=== PATIENT | female | born 1950 | race Hispanic/Latino ===

== ENCOUNTER → 2020-07-14 | Outpatient (CLI) | payer MEDICARE ==
[~2020-07-14] MED LIST: ALBUMIN 25% 12.5GM 50ML 150 ML IV ONE; ALBUMIN 25% 12.5GM 50ML 50 ML IV ONE; ASPIRIN81 MG; GLIPIZIDE ER5 MG; LEVOTHYROXINE50 MCG PO; LOSARTAN POTASS25 MG; LOVASTATIN20 MG; METFORMIN HCL500 M1 PO; METFORMIN HCL500 MG PO; PEPCID20 MG PO
[2020-07-14 12:31] LABS: INR 1.1; PROTHROMBIN TIME 14.8 seconds (11.9-14.5)
[2020-07-14 12:49] LABS: PARTIAL THROMBOPLASTIN TIME 31.7 seconds (23.8-35.5)
--- NOTE | 2020-07-14 14:33 | Diagnostic Imaging Report ---
PROCEDURE: Ultrasound-guided paracentesis Procedural Personnel Attending physician(s): Francisco Fulton MD Pre-procedure diagnosis: Ascites Post-procedure diagnosis: Unchanged Indication: Ascites with pain or pressure symptoms Additional clinical history: None Complications: No immediate complications. IMPRESSION: Ultrasound-guided paracentesis with drainage of 8800 mL of serous fluid. Plan: Resume care by clinical team. PROCEDURE SUMMARY: - Limited abdominal ultrasound - Ultrasound-guided paracentesis - Additional procedure(s): None PROCEDURE DETAILS: Pre-procedure Consent: Informed consent for the procedure including risks, benefits and alternatives was obtained and time-out was performed prior to the procedure. Preparation: The site was prepared and draped using maximal sterile barrier technique including cutaneous antisepsis. Anesthesia/sedation Level of anesthesia/sedation: None Initial abdominal ultrasound Initial abdominal ultrasound was performed. Findings: Large ascites. A safe window for paracentesis was identified. Paracentesis Local anesthesia was administered. The peritoneal cavity was accessed and fluid return confirmed position. Ascites was drained. The catheter was then removed, and a sterile bandage was applied. Paracentesis access technique: Real-time ultrasound guidance. Catheter placed: 5Fr Yueh Post-drainage ultrasound: No visible ascites Additional Details Additional description of procedure: None Equipment details: None Specimens removed: Abdominal fluid Estimated blood loss (mL): Minimal (<10cc) Standardized report: [id number] Attestation Signer name: Francisco Fulton MD I attest that I was present for the entire procedure. I reviewed the stored images and agree with the report as written. Signed by: Francisco Fulton MD on 07/14/2020 2:29 PM
[2020-07-14 16:41] LABS: BODY FLUID APPEARANCE CLOUDY; BODY FLUID COLOR YELLOW; BODY FLUID TYPE PLEURAL
[2020-07-14 16:42] LABS: RBC,BODY FLUID 112 cells/uL; WBC,BODY FLUID 39 cells/uL
[2020-07-14 16:55] LABS: LYMPHOCYTES,BODY FLUID 57 %; MONO/MACROPHG,BODY FLUID 34 %; NEUTROPHILS,BODY FLUID 9 %
== END ==
LOC: US 11:41
PROVIDERS: ATTEND Internal Medicine Gastroenterology
DX: K74.60 Unspecified cirrhosis of liver (principal)
CPT/HCPCS: 36415; 49083; 82040; 84157; 85014; 85049; 85610; 85730; 87070; 87205; 89051; C1729

== ENCOUNTER 2020-07-19 11:41 | Observation (INO) | payer MEDICARE, OTHER ==
[~2020-07-19] VITALS: Ht 152.4 cm; Wt 58.1 kg
[~2020-07-19 11:41] MED LIST changes: -ALBUMIN 25% 12.5GM 50ML 150 ML IV ONE; -ALBUMIN 25% 12.5GM 50ML 50 ML IV ONE; -ASPIRIN81 MG; +ASPIRIN81 MG PO; -LOSARTAN POTASS25 MG; +LOSARTAN POTASS25 MG PO; -LOVASTATIN20 MG; +LOVASTATIN20 MG PO
[2020-07-19 12:45] LABS: BASOPHILS % 0.4 % (0.0-1.0); EOSINOPHILS % 0.6 % (0.0-6.0); HEMATOCRIT 32.2 % (34.2-44.1); HEMOGLOBIN 10.3 g/dL (12.0-16.0); LYMPHOCYTES # (AUTO) 0.8 (1.0-3.2); LYMPHOCYTES % 16.1 % (18.0-39.1); MEAN CORPUSCULAR HEMOGLOBIN 26.3 pg (28-32); MEAN CORPUSCULAR VOLUME 82.4 fL (81-99); MONOCYTES # (AUTO) 0.3 (0.2-0.8); MONOCYTES % 6.9 % (4.4-11.3); NEUTROPHILS # (AUTO) 3.7 (2.1-6.9); NEUTROPHILS % 75.6 % (38.7-80.0); PLATELET COUNT 215 x10e3/uL (140-360); RED BLOOD COUNT 3.91 x10e6/uL (3.6-5.1); RED CELL DISTRIBUTION WIDTH 16.7 % (11.7-14.4)
[2020-07-19 12:53] LABS: CLARITY,URINE HAZY (CLEAR); COLOR,URINE YELLOW (YELLOW); KETONES,URINE NEGATIVE (NEGATIVE); LEUKOCYTE ESTERASE ,URINE SMALL (NEGATIVE); NITRITE,URINE POSITIVE (NEGATIVE); PROTEIN,URINE DIPSTICK NEGATIVE (NEGATIVE); URINE UROBILINOGEN 4 mg/dL (0.2 - 1)
[2020-07-19 12:54] LABS: BILIRUBIN,URINE NEGATIVE (NEGATIVE)
[2020-07-19 12:59] LABS: INR 1.17; PROTHROMBIN TIME 15.5 seconds (11.9-14.5)
[2020-07-19 13:02] LABS: BACTERIA,URINE MANY /HPF; RBC,URINE 0-5 /HPF (0-5)
[2020-07-19 13:03] LABS: EPITHELIAL CELLS,URINE FEW /LPF
[2020-07-19 13:07] LABS: ALANINE AMINOTRANSFERASE 21 IU/L (0-55); ALBUMIN 3.2 g/dL (3.5-5.0); ALBUMIN/GLOBULIN RATIO 0.5 (0.8-2.0); ALKALINE PHOSPHATASE 99 IU/L (40-150); ANION GAP 15.6 mmol/L (8-16); BLOOD UREA NITROGEN 13 mg/dL (7-26); BUN/CREATININE RATIO 18 (6-25); CALCIUM 8.8 mg/dL (8.4-10.2); CARBON DIOXIDE 25 mmol/L (22-29); CHLORIDE 99 mmol/L (98-107); CREATININE, SERUM 0.72 mg/dL (0.57-1.11); EST GLOMERULAR FILTRATION RATE > 60 ML/MIN (60-); GLUCOSE 172 mg/dL (74-118); POTASSIUM 3.6 mmol/L (3.5-5.1); SODIUM 136 mmol/L (136-145)
[2020-07-19] MEDS ORDERED: LACTULOSE SYRUP 20 GM/30 ML UDC PO PRN ×2 (13:45→17:15)
[2020-07-19] MEDS ORDERED: CEFTRIAXONE SOD 1 GM/NS 50 ML 50 ML IV SCH (13:45)
[2020-07-19] MEDS: SODIUM CHLORIDE 0.9% 1000ML 1,000 ML IV SCH ×2 (15:44→17:42)
[2020-07-19] MEDS ORDERED: FUROSEMIDE40 MG PO (16:41)
[2020-07-19] MEDS ORDERED: SPIRONOLACTONE25 MG PO (16:41)
[2020-07-19] MEDS ORDERED: MULTIVITAMINS1 EAC7 PO (16:41)
[2020-07-19] MEDS ORDERED: CALCIUM + VITA1 EACH PO (16:43)
[2020-07-19] MEDS ORDERED: SERTRALINE HCL50 MG PO (16:43)
[2020-07-19] MEDS ORDERED: METOPROLOL SUCC25 MG PO (16:47)
[2020-07-19] MEDS ORDERED: HEMATINIC-FOLI1 EACH PO (16:47)
[2020-07-19 17:00] VITALS: BP 121/54
[2020-07-19 17:14] VITALS: BP 121/54
[2020-07-19] MEDS ORDERED: ONDANSETRON HCL INJ 2MG/ML 2ML 2 MG/ML VIAL IV PRN (17:15)
[2020-07-19] MEDS: LACTULOSE SYRUP 20 GM/30 ML UDC PO SCH (17:42)
[2020-07-19 20:00] VITALS: BP 122/62
[2020-07-20] VITALS: BP 116/67
[2020-07-20 00:01] VITALS: BP 122/62
[2020-07-20] MEDS: SODIUM CHLORIDE 0.9% 1000ML 1,000 ML IV SCH (03:43)
[2020-07-20 04:00] VITALS: BP 114/45
[2020-07-20 05:11] LABS: BASOPHILS % 0.2 % (0.0-1.0); EOSINOPHILS % 0.6 % (0.0-6.0); HEMATOCRIT 26.2 % (34.2-44.1); HEMOGLOBIN 8.5 g/dL (12.0-16.0); LYMPHOCYTES # (AUTO) 0.7 (1.0-3.2); LYMPHOCYTES % 13.1 % (18.0-39.1); MEAN CORPUSCULAR HEMOGLOBIN 27.2 pg (28-32); MEAN CORPUSCULAR HGB CONC 32.4 g/dL (31-35); MONOCYTES # (AUTO) 0.6 (0.2-0.8); MONOCYTES % 11.7 % (4.4-11.3); NEUTROPHILS # (AUTO) 3.8 (2.1-6.9); NEUTROPHILS % 74.2 % (38.7-80.0); PLATELET COUNT 134 x10e3/uL (140-360); RED BLOOD COUNT 3.12 x10e6/uL (3.6-5.1); RED CELL DISTRIBUTION WIDTH 16.8 % (11.7-14.4)
[2020-07-20] MEDS ORDERED: LACTULOSE20 GM/30 M PO (05:24)
[2020-07-20] MEDS ORDERED: KEFLEX500 MG PO (05:24)
[2020-07-20 05:25] LABS: ANION GAP 10.4 mmol/L (8-16); BLOOD UREA NITROGEN 13 mg/dL (7-26); BUN/CREATININE RATIO 19 (6-25); CALCIUM 7.8 mg/dL (8.4-10.2); CARBON DIOXIDE 24 mmol/L (22-29); CHLORIDE 106 mmol/L (98-107); CREATININE, SERUM 0.69 mg/dL (0.57-1.11); EST GLOMERULAR FILTRATION RATE > 60 ML/MIN (60-); GLUCOSE 189 mg/dL (74-118); POTASSIUM 3.4 mmol/L (3.5-5.1); SODIUM 137 mmol/L (136-145)
[2020-07-20] MEDS ORDERED: XIFAXAN550 MG PO (05:29)
[2020-07-20] MEDS ORDERED: LEVOTHYROXINE SODIUM 50 MCG TAB PO SCH (06:00)
[2020-07-20] MEDS ORDERED: ONDANSETRON HCL 4 MG ORAL DISINTEGRATING TAB PO PRN (08:15)
[2020-07-20] MEDS ORDERED: LOSARTAN POTASSIUM 25 MG TAB PO SCH (09:00)
[2020-07-20] MEDS ORDERED: METOPROLOL SUCCINATE 25 MG TAB XL PO SCH (09:00)
[2020-07-20] MEDS ORDERED: SERTRALINE HCL 50 MG TAB PO SCH (09:00)
[2020-07-20] MEDS: LACTULOSE SYRUP 20 GM/30 ML UDC PO SCH (09:05)
[2020-07-20 09:28] VITALS: BP 122/64
[2020-07-20 09:49] VITALS: BP 122/64
== END 2020-07-20 12:13 | disposition home or self-care (01) ==
LOC: ER 12:20 → ERHOLD 14:06 → INTOOBSV 14:06 → MED/SURG2 16:14
PROVIDERS: ADMIT Internal Medicine; ATTEND Internal Medicine
DX: K72.90 Hepatic failure, unspecified without coma (principal); K74.60 Unspecified cirrhosis of liver; E72.20 Disorder of urea cycle metabolism, unspecified; E03.9 Hypothyroidism, unspecified; I10 Essential (primary) hypertension; E78.5 Hyperlipidemia, unspecified; N39.0 Urinary tract infection, site not specified; Z11.59 Encounter for screening for other viral diseases
CPT/HCPCS: 36415 ×2; 70450; 71045; 80048; 80053; 81001; 82140 ×2; 82948 ×2; 83605; 84484; 85025 ×2; 85610; 87040; 93005; 99284; G0378 ×2; J7030 ×2; U0002

== ENCOUNTER 2020-08-01 21:47 | Inpatient (IN) | payer MEDICARE, OTHER ==
[~2020-08-01] VITALS: Ht 152.4 cm; Wt 41.4 kg
[~2020-08-01 21:47] MED LIST changes: +CALCIUM + VITA1 EACH PO; +FUROSEMIDE40 MG PO; +HEMATINIC-FOLI1 EACH PO; +KEFLEX500 MG PO; +LACTULOSE20 GM/30 M PO; +METOPROLOL SUCC25 MG PO; +MULTIVITAMINS1 EAC7 PO; +SERTRALINE HCL50 MG PO; +SPIRONOLACTONE25 MG PO; +XIFAXAN550 MG PO
[2020-08-01 22:14] LABS: BASOPHILS % 0.5 % (0.0-1.0); EOSINOPHILS # (AUTO) 0.1 (0.0-0.4); HEMOGLOBIN 10.2 g/dL (12.0-16.0); LYMPHOCYTES # (AUTO) 1.3 (1.0-3.2); LYMPHOCYTES % 22.6 % (18.0-39.1); MEAN CORPUSCULAR HEMOGLOBIN 26.4 pg (28-32); MEAN CORPUSCULAR HGB CONC 31.9 g/dL (31-35); MEAN CORPUSCULAR VOLUME 82.7 fL (81-99); MONOCYTES # (AUTO) 0.5 (0.2-0.8); MONOCYTES % 8.7 % (4.4-11.3); NEUTROPHILS # (AUTO) 3.8 (2.1-6.9); NEUTROPHILS % 66.7 % (38.7-80.0); PLATELET COUNT 250 x10e3/uL (140-360); RED BLOOD COUNT 3.87 x10e6/uL (3.6-5.1); RED CELL DISTRIBUTION WIDTH 17.3 % (11.7-14.4)
[2020-08-01 22:33] LABS: ALANINE AMINOTRANSFERASE 31 IU/L (0-55); ALBUMIN 3.1 g/dL (3.5-5.0); ALBUMIN/GLOBULIN RATIO 0.5 (0.8-2.0); ALKALINE PHOSPHATASE 126 IU/L (40-150); ANION GAP 14.6 mmol/L (8-16); BLOOD UREA NITROGEN 21 mg/dL (7-26); BUN/CREATININE RATIO 23 (6-25); CARBON DIOXIDE 19 mmol/L (22-29); CHLORIDE 102 mmol/L (98-107); CREATININE, SERUM 0.91 mg/dL (0.57-1.11); EST GLOMERULAR FILTRATION RATE > 60 ML/MIN (60-); GLUCOSE 189 mg/dL (74-118); POTASSIUM 4.6 mmol/L (3.5-5.1); SODIUM 131 mmol/L (136-145)
[2020-08-01 22:36] LABS: CALCIUM 9.4 mg/dL (8.4-10.2)
[2020-08-01] MEDS ORDERED: ONDANSETRON HCL INJ 2MG/ML 2ML 2 MG/ML VIAL IV PRN (23:30)
[2020-08-01] MEDS ORDERED: DEXTROSE 50% SYRINGE 50 ML IV PRN (23:30)
[2020-08-01] MEDS ORDERED: LACTULOSE SYRUP 20 GM/30 ML UDC PO PRN (23:30)
[2020-08-01] MEDS ORDERED: SODIUM CHLORIDE FLUSH 10 ML SYR INJ PRN (23:30)
[2020-08-02] VITALS (8 sets, daily range): BP systolic 116–123; BP diastolic 60–84
[2020-08-02] MEDS: INSULIN REGULAR, HUMAN 100 UNIT/1 ML 3ML VIAL SQ SCH ×4 (07:30→20:44)
[2020-08-02] MEDS: LEVOTHYROXINE SODIUM 50 MCG TAB PO SCH (08:24)
[2020-08-02] MEDS: SPIRONOLACTONE 25 MG TAB PO SCH (08:25)
[2020-08-02] MEDS: ASPIRIN 81 MG CHEW TAB PO SCH (08:25)
[2020-08-02] MEDS: LOSARTAN POTASSIUM 25 MG TAB PO SCH (08:26)
[2020-08-02] MEDS: MULTIVITAMINS/MINERALS TAB PO SCH (08:26)
[2020-08-02] MEDS: METOPROLOL SUCCINATE 25 MG TAB XL PO SCH (08:26)
[2020-08-02] MEDS: SERTRALINE HCL 50 MG TAB PO SCH (08:27)
[2020-08-02] MEDS: RIFAXIMIN 550 MG TABLET PO SCH ×2 (08:27→16:42)
[2020-08-02] MEDS: OYST-CAL-D 500MG TABLET PO SCH (08:40)
[2020-08-02] MEDS: FUROSEMIDE 40 MG TAB PO SCH (08:40)
[2020-08-02] MEDS: FOLIC ACID PO SCH (08:41)
[2020-08-02] MEDS: FERROUS FUMARATE PO SCH (08:41)
[2020-08-02] MEDS: [UNRECOGNIZED DRUG - OTHER] PO SCH (08:41)
[2020-08-02 09:29] LABS: BASOPHILS % 0.4 % (0.0-1.0); EOSINOPHILS # (AUTO) 0.1 (0.0-0.4); EOSINOPHILS % 2.6 % (0.0-6.0); HEMATOCRIT 31.2 % (34.2-44.1); HEMOGLOBIN 10.1 g/dL (12.0-16.0); LYMPHOCYTES # (AUTO) 1.3 (1.0-3.2); LYMPHOCYTES % 23.7 % (18.0-39.1); MEAN CORPUSCULAR HEMOGLOBIN 26.5 pg (28-32); MEAN CORPUSCULAR HGB CONC 32.4 g/dL (31-35); MEAN CORPUSCULAR VOLUME 81.9 fL (81-99); MONOCYTES # (AUTO) 0.5 (0.2-0.8); MONOCYTES % 8.9 % (4.4-11.3); NEUTROPHILS # (AUTO) 3.4 (2.1-6.9); NEUTROPHILS % 64.2 % (38.7-80.0); PLATELET COUNT 218 x10e3/uL (140-360); RED BLOOD COUNT 3.81 x10e6/uL (3.6-5.1); RED CELL DISTRIBUTION WIDTH 17.2 % (11.7-14.4)
[2020-08-02 09:46] LABS: ALANINE AMINOTRANSFERASE 28 IU/L (0-55); ALBUMIN 2.9 g/dL (3.5-5.0); ALBUMIN/GLOBULIN RATIO 0.5 (0.8-2.0); ALKALINE PHOSPHATASE 127 IU/L (40-150); ANION GAP 12.1 mmol/L (8-16); BLOOD UREA NITROGEN 22 mg/dL (7-26); BUN/CREATININE RATIO 26 (6-25); CALCIUM 8.8 mg/dL (8.4-10.2); CARBON DIOXIDE 23 mmol/L (22-29); CHLORIDE 103 mmol/L (98-107); CREATININE, SERUM 0.86 mg/dL (0.57-1.11); EST GLOMERULAR FILTRATION RATE > 60 ML/MIN (60-); GLUCOSE 169 mg/dL (74-118); POTASSIUM 4.1 mmol/L (3.5-5.1); SODIUM 134 mmol/L (136-145)
[2020-08-02] MEDS: LACTULOSE SYRUP 20 GM/30 ML UDC PO SCH ×2 (12:01→17:14)
[2020-08-02 12:49] LABS: BILIRUBIN,URINE NEGATIVE (NEGATIVE); CLARITY,URINE SL CLOUDY (CLEAR); COLOR,URINE YELLOW (YELLOW); KETONES,URINE NEGATIVE (NEGATIVE); LEUKOCYTE ESTERASE ,URINE MODERATE (NEGATIVE); NITRITE,URINE NEGATIVE (NEGATIVE); PROTEIN,URINE DIPSTICK NEGATIVE (NEGATIVE); URINE UROBILINOGEN 1 mg/dL (0.2 - 1)
[2020-08-02 12:50] LABS: BACTERIA,URINE MODERATE /HPF; EPITHELIAL CELLS,URINE RARE /LPF
[2020-08-02] MEDS: SIMVASTATIN 20 MG TAB PO SCH (20:42)
[2020-08-02] MEDS: DEXTROSE 5%/0.45% SOD CHL 1,000 ML IV SCH (20:56)
[2020-08-03] VITALS (8 sets, daily range): BP systolic 100–119; BP diastolic 54–60
[2020-08-03] MEDS: LACTULOSE SYRUP 20 GM/30 ML UDC PO SCH ×4 (00:03→17:51)
[2020-08-03] MEDS: LEVOTHYROXINE SODIUM 50 MCG TAB PO SCH (06:12)
[2020-08-03] MEDS: INSULIN REGULAR, HUMAN 100 UNIT/1 ML 3ML VIAL SQ SCH ×4 (07:30→21:09)
[2020-08-03] MEDS: FOLIC ACID PO SCH (09:00)
[2020-08-03] MEDS: FERROUS FUMARATE PO SCH (09:00)
[2020-08-03] MEDS: [UNRECOGNIZED DRUG - OTHER] PO SCH (09:00)
[2020-08-03] MEDS: LOSARTAN POTASSIUM 25 MG TAB PO SCH (09:00)
[2020-08-03] MEDS: METOPROLOL SUCCINATE 25 MG TAB XL PO SCH (09:00)
[2020-08-03] MEDS: ASPIRIN 81 MG CHEW TAB PO SCH (09:22)
[2020-08-03] MEDS: SPIRONOLACTONE 25 MG TAB PO SCH (09:22)
[2020-08-03] MEDS: FUROSEMIDE 40 MG TAB PO SCH (09:23)
[2020-08-03] MEDS: OYST-CAL-D 500MG TABLET PO SCH (09:23)
[2020-08-03] MEDS: MULTIVITAMINS/MINERALS TAB PO SCH (09:23)
[2020-08-03] MEDS: SERTRALINE HCL 50 MG TAB PO SCH (09:23)
[2020-08-03] MEDS: RIFAXIMIN 550 MG TABLET PO SCH ×2 (09:23→17:41)
[2020-08-03] MEDS: DEXTROSE 5%/0.45% SOD CHL 1,000 ML IV SCH (18:24)
[2020-08-03] MEDS: SIMVASTATIN 20 MG TAB PO SCH (21:01)
[2020-08-04] VITALS (9 sets, daily range): BP systolic 91–114; BP diastolic 40–62
[2020-08-04] MEDS: LACTULOSE SYRUP 20 GM/30 ML UDC PO SCH ×5 (00:52→23:08)
[2020-08-04] MEDS: LEVOTHYROXINE SODIUM 50 MCG TAB PO SCH (05:53)
[2020-08-04] MEDS: FOLIC ACID PO SCH (09:00)
[2020-08-04] MEDS: [UNRECOGNIZED DRUG - OTHER] PO SCH (09:00)
[2020-08-04] MEDS: FERROUS FUMARATE PO SCH (09:00)
[2020-08-04] MEDS: MULTIVITAMINS/MINERALS TAB PO SCH (10:30)
[2020-08-04] MEDS: SERTRALINE HCL 50 MG TAB PO SCH (10:30)
[2020-08-04] MEDS: INSULIN REGULAR, HUMAN 100 UNIT/1 ML 3ML VIAL SQ SCH ×5 (10:30→22:53)
[2020-08-04] MEDS: RIFAXIMIN 550 MG TABLET PO SCH ×2 (10:30→16:45)
[2020-08-04] MEDS: OYST-CAL-D 500MG TABLET PO SCH (10:30)
[2020-08-04] MEDS: LOSARTAN POTASSIUM 25 MG TAB PO SCH (10:30)
[2020-08-04] MEDS: ASPIRIN 81 MG CHEW TAB PO SCH (10:30)
[2020-08-04] MEDS: SPIRONOLACTONE 25 MG TAB PO SCH (10:30)
[2020-08-04] MEDS: METOPROLOL SUCCINATE 25 MG TAB XL PO SCH (10:30)
[2020-08-04] MEDS: FUROSEMIDE 40 MG TAB PO SCH (11:12)
[2020-08-04] MEDS: TRAMADOL HCL 50 MG TAB PO PRN ×2 (15:54→23:54)
[2020-08-04] MEDS: DEXTROSE 5%/0.45% SOD CHL 1,000 ML IV SCH (20:35)
[2020-08-04] MEDS: SIMVASTATIN 20 MG TAB PO SCH (20:39)
[2020-08-05] VITALS (7 sets, daily range): BP systolic 93–101; BP diastolic 49–60
[2020-08-05] MEDS: LACTULOSE SYRUP 20 GM/30 ML UDC PO SCH ×2 (05:53→12:24)
[2020-08-05] MEDS: LEVOTHYROXINE SODIUM 50 MCG TAB PO SCH (05:53)
[2020-08-05] MEDS: SPIRONOLACTONE 25 MG TAB PO SCH (08:13)
[2020-08-05] MEDS: ASPIRIN 81 MG CHEW TAB PO SCH (08:13)
[2020-08-05] MEDS: LOSARTAN POTASSIUM 25 MG TAB PO SCH (08:14)
[2020-08-05] MEDS: MULTIVITAMINS/MINERALS TAB PO SCH (08:14)
[2020-08-05] MEDS: OYST-CAL-D 500MG TABLET PO SCH (08:15)
[2020-08-05] MEDS: SERTRALINE HCL 50 MG TAB PO SCH (08:15)
[2020-08-05] MEDS: RIFAXIMIN 550 MG TABLET PO SCH (08:15)
[2020-08-05] MEDS: METOPROLOL SUCCINATE 25 MG TAB XL PO SCH (08:17)
[2020-08-05] MEDS: [UNRECOGNIZED DRUG - OTHER] PO SCH (09:00)
[2020-08-05] MEDS: FERROUS FUMARATE PO SCH (09:00)
[2020-08-05] MEDS ORDERED: OLOPATADINE 5 ML BTL OP SCH (09:00)
[2020-08-05] MEDS ORDERED: EYE LUBRICANT OPTH OINT 3.5GM TUBE OP SCH (09:00)
[2020-08-05] MEDS: FUROSEMIDE 40 MG TAB PO SCH (09:00)
[2020-08-05] MEDS: FOLIC ACID PO SCH (09:00)
[2020-08-05] MEDS: INSULIN REGULAR, HUMAN 100 UNIT/1 ML 3ML VIAL SQ SCH ×2 (09:12→11:30)
[2020-08-05] MEDS ORDERED: LACTULOSE20 GM/30 M PO (12:18)
[2020-08-05] MEDS ORDERED: XIFAXAN550 MG PO (12:18)
== END 2020-08-05 14:15 | disposition home or self-care (01) | DRG 432 ==
LOC: ER 21:54 → ERHOLD 23:21 → MED/SURG 08-02 01:46
PROVIDERS: ADMIT Internal Medicine; ATTEND Internal Medicine
DX: K74.60 Unspecified cirrhosis of liver (principal); K72.00 Acute and subacute hepatic failure without coma; E44.0 Moderate protein-calorie malnutrition; Z68.1 Body mass index [BMI] 19.9 or less, adult; I10 Essential (primary) hypertension; E11.9 Type 2 diabetes mellitus without complications; E03.9 Hypothyroidism, unspecified; E78.5 Hyperlipidemia, unspecified; Z90.49 Acquired absence of other specified parts of digestive tract; Z91.14 Patient's other noncompliance with medication regimen; Z79.84 Long term (current) use of oral hypoglycemic drugs
CPT/HCPCS: 36415; 70450; 71045; 80053; 81001; 82140; 85025; 96360; 96372; 97139; 99284; J1817; U0002

== ENCOUNTER → 2020-08-11 | Outpatient (CLI) | payer MEDICARE, OTHER ==
[~2020-08-11] MED LIST changes: +IOPAMIDOL 370 MG/ML 200 ML INFUS..BTL INJ ONE; +SODIUM CHLORIDE 0.9% 50ML 50 ML ONE
[2020-08-11 08:51] LABS: BLOOD UREA NITROGEN 12 mg/dL (7-26); BUN/CREATININE RATIO 15 (6-25); EST GLOMERULAR FILTRATION RATE > 60 ML/MIN (60-)
--- NOTE | 2020-08-11 16:58 | Diagnostic Imaging Report ---
EXAM: CT ABDOMEN WITH CONTRAST CLINICAL INDICATION: The liver ultrasound done at an outside facility on 06/20/2020 suspected a 1.7 cm inferior right liver mass and portal vein thrombosis. TECHNIQUE: CT abdomen was performed, following the administration of contrast, as per department protocol. Noncontrast, arterial, portal venous and delayed phase images were performed. Axial, sagittal, and coronal reconstructions were obtained. IV CONTRAST: 100 cc of Isovue-370 ORAL CONTRAST: Not administered, limiting the sensitivity of this exam for evaluation of bowel, retroperitoneum, and intraabdominal fluid collections. RADIATION DOSE REDUCTION:This exam was performed according to the departmental dose-optimization program which includes automated exposure control, adjustment of the mA and/or kV according to patient size and/or use of iterative reconstruction technique. COMPARISON: None FINDINGS: LOWER CHEST: No pathologic process in imaged portion of lower chest LIVER: There is no CT evidence of a fatty infiltration of the liver. The liver has a cirrhotic morphology with volume redistribution. There is an arterially hyperenhancing focus in the liver measuring 17 mm in segment 8 of the liver series 3 image #27. It shows washout on the portal venous and delayed phases. There is no pseudocapsule. 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 In the setting of cirrhosis, hepatocellular carcinoma is a distinct possibility. The celiac artery branching pattern and the hepatic arteries are conventional in anatomy. The visualized superior mesenteric vein, splenic vein, the main portal vein, the right and left portal vein branches and intrahepatic portal vein radicals enhance in the portal venous phase without a filling defect or flow abnormality. The hepatic veins are patent. There is no intrahepatic biliary dilatation. There is prominence of the common bile duct that measures 7 mm. Which is within normal limits. The patient is status post cholecystectomy. GALLBLADDER: Status post cholecystectomy BILE DUCTS: As above PANCREAS: No pathologic process. SPLEEN: The spleen measures approximately 9.5 cm. There is no other splenic pathology. ADRENALS: No pathologic process. KIDNEYS AND URETERS: No pathologic process. GASTROINTESTINAL TRACT: No pathologic process. LYMPH NODES: No lymphadenopathy. PERITONEUM/MESENTERY: Mesenteric stranding and other findings suggestive of trace ascites. VESSELS: The main portal vein and its branches are patent. There is no CT evidence of fatty infiltration. ADDITIONAL RETROPERITONEAL FINDINGS: None. ABDOMINAL AND PELVIC NOBLE: Mild edema MUSCULOSKELETAL: No aggressive lesions ADDITIONAL FINDINGS: None. IMPRESSION: A segment 8 lesion in the liver measuring 17 mm with arterial phase enhancement and washout without pseudocapsule. In the setting of liver cirrhosis hepatocellular carcinoma would be a strong consideration. Standardized Report: [id number]. Signed by: Compa Fitch MD on 08/11/2020 4:55 PM
== END ==
LOC: CT 07:45
PROVIDERS: ATTEND Internal Medicine Gastroenterology
DX: R16.0 Hepatomegaly, not elsewhere classified (principal)
CPT/HCPCS: 36415; 74170; 82565; 84520; Q9967

== ENCOUNTER → 2020-09-25 | Outpatient (CLI) | payer MEDICARE, OTHER ==
[~2020-09-25] MED LIST changes: +GADOBENATE DIMEGLUMINE 1 ML IV ONE; -IOPAMIDOL 370 MG/ML 200 ML INFUS..BTL INJ ONE
[2020-09-25 15:35] LABS: CREATININE, SERUM 1.05 mg/dL (0.57-1.11)
== END ==
LOC: MRI 14:48
PROVIDERS: ATTEND Internal Medicine Gastroenterology
DX: R93.89 Abnormal findings on diagnostic imaging of other specified body structures (principal)
CPT/HCPCS: 36415; 74183; 82565; 84520; A9577

== ENCOUNTER 2021-01-20 10:24 | Emergency (ER) | payer MEDICARE ==
[~2021-01-20] VITALS: Ht 152.4 cm; Wt 41.3 kg
[~2021-01-20 10:24] MED LIST changes: -GADOBENATE DIMEGLUMINE 1 ML IV ONE; -SODIUM CHLORIDE 0.9% 50ML 50 ML ONE
[2021-01-20] MEDS ORDERED: SODIUM CHLORIDE 0.9% 500ML 500 ML IV ONE (11:00)
[2021-01-20 11:35] LABS: BASOPHILS % 0.2 % (0.0-1.0); EOSINOPHILS % 0.9 % (0.0-6.0); HEMOGLOBIN 10.4 g/dL (12.0-16.0); LYMPHOCYTES # (AUTO) 0.6 (1.0-3.2); LYMPHOCYTES % 14.1 % (18.0-39.1); MEAN CORPUSCULAR HEMOGLOBIN 28.4 pg (28-32); MEAN CORPUSCULAR HGB CONC 33.5 g/dL (31-35); MEAN CORPUSCULAR VOLUME 84.7 fL (81-99); MONOCYTES # (AUTO) 0.4 (0.2-0.8); MONOCYTES % 7.8 % (4.4-11.3); NEUTROPHILS # (AUTO) 3.4 (2.1-6.9); NEUTROPHILS % 76.8 % (38.7-80.0); PLATELET COUNT 187 x10e3/uL (140-360); RED BLOOD COUNT 3.66 x10e6/uL (3.6-5.1); RED CELL DISTRIBUTION WIDTH 14.2 % (11.7-14.4)
[2021-01-20 11:43] LABS: CLARITY,URINE CLEAR (CLEAR); COLOR,URINE YELLOW (YELLOW); LEUKOCYTE ESTERASE ,URINE NEGATIVE (NEGATIVE); NITRITE,URINE NEGATIVE (NEGATIVE); PROTEIN,URINE DIPSTICK NEGATIVE (NEGATIVE)
[2021-01-20 11:44] LABS: BACTERIA,URINE RARE /HPF; EPITHELIAL CELLS,URINE FEW /LPF; KETONES,URINE NEGATIVE (NEGATIVE); RBC,URINE 0-5 /HPF (0-5); URINE UROBILINOGEN 1 mg/dL (0.2 - 1); WBC,URINE (MAN) 0-5 /HPF (0-5)
[2021-01-20 11:45] LABS: AMPHETAMINES SCREEN,URINE NEGATIVE (NEGATIVE); BENZODIAZEPINES SCREEN,URINE NEGATIVE (NEGATIVE); PHENCYCLIDINE SCREEN,URINE NEGATIVE (NEGATIVE)
[2021-01-20 11:52] LABS: INR 1.06; PROTHROMBIN TIME 14.4 seconds (11.9-14.5)
[2021-01-20 11:53] LABS: PARTIAL THROMBOPLASTIN TIME 30.2 seconds (23.8-35.5)
[2021-01-20 11:56] LABS: ALANINE AMINOTRANSFERASE 51 IU/L (0-55); ALBUMIN 3.4 g/dL (3.5-5.0); ALBUMIN/GLOBULIN RATIO 0.8 (0.8-2.0); ALKALINE PHOSPHATASE 137 IU/L (40-150); ANION GAP 18.2 mmol/L (8-16); BLOOD UREA NITROGEN 10 mg/dL (7-26); BUN/CREATININE RATIO 12 (6-25); CARBON DIOXIDE 21 mmol/L (22-29); CHLORIDE 104 mmol/L (98-107); CREATINE KINASE 51 IU/L (29-168); CREATININE, SERUM 0.83 mg/dL (0.57-1.11); EST GLOMERULAR FILTRATION RATE > 60 ML/MIN (60-); GLUCOSE 228 mg/dL (74-118); MAGNESIUM 1.6 MG/DL (1.3-2.1); POTASSIUM 3.2 mmol/L (3.5-5.1); SODIUM 140 mmol/L (136-145)
[2021-01-20] MEDS ORDERED: LACTULOSE SYRUP 20 GM/30 ML UDC PO ONE (17:30)
[2021-01-20 17:33] VITALS: BP 110/52
== END 2021-01-20 18:00 | disposition home or self-care (01) ==
LOC: ER 11:45
DX: R53.1 Weakness (principal); K72.90 Hepatic failure, unspecified without coma; R94.31 Abnormal electrocardiogram [ECG] [EKG]; I10 Essential (primary) hypertension; E11.65 Type 2 diabetes mellitus with hyperglycemia; E78.5 Hyperlipidemia, unspecified; E03.9 Hypothyroidism, unspecified; Z85.05 Personal history of malignant neoplasm of liver
CPT/HCPCS: 36415; 70450; 71045; 80053; 80307; 81001; 82140; 82550; 82553; 83735; 84484; 85025; 85610; 85730; 87086; 93005; 99284; J7040

== ENCOUNTER 2021-05-25 17:42 | Inpatient (IN) | payer MEDICARE, OTHER ==
[2021-05-25] MEDS ORDERED: SODIUM CHLORIDE 0.9% 1000ML 1,000 ML IV ONE (18:00)
[2021-05-25 18:25] LABS: BASOPHILS % 0.2 % (0.0-1.0); HEMATOCRIT 35.6 % (34.2-44.1); HEMOGLOBIN 11.1 g/dL (12.0-16.0); LYMPHOCYTES # (AUTO) 0.8 (1.0-3.2); LYMPHOCYTES % 14.3 % (18.0-39.1); MEAN CORPUSCULAR HEMOGLOBIN 27.3 pg (28-32); MEAN CORPUSCULAR HGB CONC 31.2 g/dL (31-35); MEAN CORPUSCULAR VOLUME 87.7 fL (81-99); MONOCYTES # (AUTO) 0.3 (0.2-0.8); MONOCYTES % 4.6 % (4.4-11.3); NEUTROPHILS # (AUTO) 4.5 (2.1-6.9); NEUTROPHILS % 80.5 % (38.7-80.0); PLATELET COUNT 150 x10e3/uL (140-360); RED BLOOD COUNT 4.06 x10e6/uL (3.6-5.1); RED CELL DISTRIBUTION WIDTH 17.6 % (11.7-14.4)
[2021-05-25 18:44] LABS: AMYLASE 73 U/L (25-125); LIPASE 55 U/L (8-78)
[2021-05-25] MEDS ORDERED: SODIUM CHLORIDE 0.9% 500ML 500 ML IV ONE (18:45)
[2021-05-25 18:46] LABS: ALBUMIN 3.5 g/dL (3.5-5.0); ALBUMIN/GLOBULIN RATIO 0.8 (0.8-2.0); ANION GAP 18.4 mmol/L (8-16); CALCIUM 9.6 mg/dL (8.4-10.2); CREATININE, SERUM 1.27 mg/dL (0.57-1.11); POTASSIUM 5.4 mmol/L (3.5-5.1)
[2021-05-25] MEDS ORDERED: SODIUM CHLORIDE 0.9% 500ML 500 ML ONE (18:58)
[2021-05-25 19:48] LABS: CLARITY,URINE SL CLOUDY (CLEAR); COLOR,URINE AMBER (YELLOW); KETONES,URINE 1+ (NEGATIVE); LEUKOCYTE ESTERASE ,URINE TRACE (NEGATIVE); NITRITE,URINE NEGATIVE (NEGATIVE); PROTEIN,URINE DIPSTICK NEGATIVE (NEGATIVE); URINE UROBILINOGEN 1 mg/dL (0.2 - 1)
[2021-05-25] MEDS ORDERED: SODIUM CHLORIDE 0.9% 50ML 50 ML ONE (19:52)
[2021-05-25] MEDS ORDERED: IOPAMIDOL 370 MG/ML 200 ML INFUS..BTL INJ ONE ×2 (19:52→19:53)
[2021-05-25 20:04] LABS: BACTERIA,URINE MODERATE /HPF; RBC,URINE 0-5 /HPF (0-5)
[2021-05-25 20:05] LABS: YEAST,URINE MANY
[2021-05-25] MEDS ORDERED: CEFTRIAXONE 1 GM in SODIUM CHLORIDE 0.9% 50ML 50 ML IV ONE (20:15)
[2021-05-25] MEDS: SODIUM CHLORIDE 0.9% 1000ML 1,000 ML IV SCH (21:14)
[2021-05-25] MEDS ORDERED: ONDANSETRON HCL INJ 2MG/ML 2ML 2 MG/ML VIAL IV PRN (21:30)
[2021-05-25] MEDS ORDERED: DEXTROSE 50% SYRINGE 50 ML IV PRN (21:30)
[2021-05-25] MEDS ORDERED: LACTULOSE SYRUP 20 GM/30 ML UDC RC PRN (21:30)
[2021-05-25] MEDS ORDERED: LACTULOSE SYRUP 20 GM/30 ML UDC RC ONE ×3 (21:45→22:30)
[2021-05-25] MEDS ORDERED: ENOXAPARIN SOD INJ 40 MG/0.4 ML SYR SC ONE (22:15)
[2021-05-25 22:18] VITALS: BP 103/57
[2021-05-25 22:30] VITALS: BP 105/57
[2021-05-25 23:00] VITALS: BP 98/57
[2021-05-25 23:11] VITALS: BP 103/57
[2021-05-26] VITALS (13 sets, daily range): BP systolic 70–112; BP diastolic 45–69
[2021-05-26] MEDS: SODIUM CHLORIDE 0.9% 1000ML 1,000 ML IV SCH ×2 (05:00→12:15)
[2021-05-26 05:07] LABS: BASOPHILS % 0.6 % (0.0-1.0); EOSINOPHILS % 0.4 % (0.0-6.0); HEMATOCRIT 31.4 % (34.2-44.1); HEMOGLOBIN 10.3 g/dL (12.0-16.0); LYMPHOCYTES % 19.9 % (18.0-39.1); MEAN CORPUSCULAR HEMOGLOBIN 27.8 pg (28-32); MEAN CORPUSCULAR HGB CONC 32.8 g/dL (31-35); MONOCYTES # (AUTO) 0.3 (0.2-0.8); MONOCYTES % 7.1 % (4.4-11.3); NEUTROPHILS # (AUTO) 3.4 (2.1-6.9); NEUTROPHILS % 71.8 % (38.7-80.0); PLATELET COUNT 103 x10e3/uL (140-360); RED BLOOD COUNT 3.71 x10e6/uL (3.6-5.1); RED CELL DISTRIBUTION WIDTH 17.5 % (11.7-14.4)
[2021-05-26 05:08] LABS: MEAN CORPUSCULAR VOLUME 84.6 fL (81-99)
[2021-05-26 05:18] LABS: ALBUMIN 2.9 g/dL (3.5-5.0); ALBUMIN/GLOBULIN RATIO 0.8 (0.8-2.0); ANION GAP 12.4 mmol/L (8-16); CALCIUM 8.1 mg/dL (8.4-10.2); CREATININE, SERUM 0.78 mg/dL (0.57-1.11); POTASSIUM 4.4 mmol/L (3.5-5.1)
[2021-05-26] MEDS: INSULIN REGULAR, HUMAN 100 UNIT/1 ML SQ SCH ×4 (07:30→20:16)
[2021-05-26] MEDS: ENOXAPARIN SOD INJ 40 MG/0.4 ML SYR SC SCH ×2 (08:47→20:18)
[2021-05-26] MEDS ORDERED: LACTULOSE SYRUP 20 GM/30 ML UDC RC SCH ×2 (09:00→10:30)
[2021-05-26] MEDS ORDERED: LACTULOSE SYRUP 20 GM/30 ML UDC PO SCH ×2 (09:00→13:30)
[2021-05-26] MEDS ORDERED: DEXTROSE 5%/0.45% SOD CHL 1,000 ML IV ONE (13:00)
[2021-05-26] MEDS: DEXTROSE 5%/0.45% SOD CHL 1,000 ML IV SCH (13:53)
[2021-05-26] MEDS: PROMETHAZINE 12.5MG/ NACL 0.9% 12.5 MG/50 ML BAG IV SCH ×2 (13:53→16:30)
[2021-05-26] MEDS: RIFAXIMIN 550 MG TABLET PO SCH (17:00)
[2021-05-26] MEDS ORDERED: CEFTRIAXONE 1 GM in SODIUM CHLORIDE 0.9% 50ML 50 ML IV SCH (20:00)
[2021-05-26] MEDS: LACTULOSE SYRUP 20 GM/30 ML UDC PO SCH (20:18)
[2021-05-27] VITALS (8 sets, daily range): BP systolic 100–137; BP diastolic 50–77
[2021-05-27] MEDS: LACTULOSE SYRUP 20 GM/30 ML UDC PO SCH (03:35)
[2021-05-27] MEDS ORDERED: LEVOTHYROXINE SODIUM 50 MCG TAB PO SCH (06:00)
[2021-05-27] MEDS ORDERED: CEPHALEXIN500 MG PO (06:04)
[2021-05-27] MEDS ORDERED: PHENERGAN SUPP25 MG RC (06:04)
[2021-05-27] MEDS: INSULIN REGULAR, HUMAN 100 UNIT/1 ML SQ SCH ×2 (07:30→11:30)
[2021-05-27] MEDS: RIFAXIMIN 550 MG TABLET PO SCH (08:59)
[2021-05-27] MEDS: PROMETHAZINE 12.5MG/ NACL 0.9% 12.5 MG/50 ML BAG IV SCH ×2 (08:59→11:30)
[2021-05-27] MEDS: ENOXAPARIN SOD INJ 40 MG/0.4 ML SYR SC SCH (09:00)
[2021-05-27] MEDS ORDERED: SERTRALINE HCL 50 MG TAB PO SCH (09:00)
[2021-05-27] MEDS: DEXTROSE 5%/0.45% SOD CHL 1,000 ML IV SCH (09:01)
== END 2021-05-27 12:28 | disposition hospice, home (50) | DRG 432 ==
LOC: ER 18:00 → ERHOLD 21:37 → ICU 22:10 → MED/SURG 05-26 18:00
PROVIDERS: ADMIT Internal Medicine; ATTEND Internal Medicine
PROC: 02HV33Z Insertion of Infusion Device into Superior Vena Cava, Percutaneous Approach (ICD-10-PCS; principal; 2021-05-25)
DX: K74.60 Unspecified cirrhosis of liver (principal); K72.00 Acute and subacute hepatic failure without coma; I81 Portal vein thrombosis; C22.0 Liver cell carcinoma; E87.2 Acidosis; N39.0 Urinary tract infection, site not specified; R18.8 Other ascites; E44.0 Moderate protein-calorie malnutrition; E87.5 Hyperkalemia; E03.9 Hypothyroidism, unspecified; E11.649 Type 2 diabetes mellitus with hypoglycemia without coma; E78.5 Hyperlipidemia, unspecified; I10 Essential (primary) hypertension; Z79.84 Long term (current) use of oral hypoglycemic drugs
CPT/HCPCS: 36415; 36569; 70450; 71045; 74177; 80053; 81001; 82140; 82150; 82948; 83605; 83690; 84132; 85025; 87040; 87086; 93005; 96361; 99284; J0696; J1650; J1817; J2550; J7030; J7040; J7799; Q9967; U0002